=== PATIENT | female | born 1945 | race Caucasian/White ===

== ENCOUNTER 2017-02-28 05:23 | Inpatient (IN) | payer MEDICARE, BC ==
[2017-02-27 09:32] VITALS: BMI 26.7
[2017-02-28] VITALS (27 sets, daily range): BP systolic 113–160; BP diastolic 72–91; PULSE 76–128; RESP 10–23; Ht 167.6 cm; Wt 79.9 kg
[~2017-02-28] VITALS: Ht 167.6 cm; Wt 79.9 kg
[2017-02-28] MEDS ORDERED: CEFAZOLIN 2 GM/50 ML (PMX) 50 ML IVPB SCH (06:00)
[2017-02-28] MEDS ORDERED: LACTATED RINGER'S 1,000 ML IV* SCH (06:00)
[2017-02-28] MEDS ORDERED: THROMBIN 5000 UNIT VIAL ONE ×2 (06:49→08:37)
[2017-02-28] MEDS ORDERED: BUPIVACAINE 0.5%/EPI (SDV) 30 ML INJ ONE (06:49)
[2017-02-28] MEDS ORDERED: GELATIN SIZE 100 SPONGE ONE ×2 (06:49→08:37)
[2017-02-28] MEDS ORDERED: POLYMYXIN/BACITRACIN 1L IRRIG ONE (06:52)
--- NOTE | 2017-02-28 07:00 | HPN ---
Date/Time of Note Date/Time of Note DATE: 02/28/17 TIME: 07:00 Interval H&P Admission Note Pt. seen H&P reviewed: No system changes MITESH GONZALEZ PA-C Feb 28, 2017 07:00
[2017-02-28] MEDS ORDERED: MIDAZOLAM 1 MG/ML 2 ML INJ ONE (07:05)
[2017-02-28] MEDS ORDERED: METH750T2 PO (07:14)
[2017-02-28] MEDS ORDERED: AMIT75TA2 PO (07:14)
[2017-02-28] MEDS ORDERED: SIMV5TAB50 PO (07:14)
[2017-02-28] MEDS ORDERED: PANT40TA3 PO (07:14)
[2017-02-28] MEDS ORDERED: PRIM50TA38 PO (07:14)
[2017-02-28] MEDS ORDERED: GABA300C16 PO (07:14)
[2017-02-28] MEDS ORDERED: TRAM50TA2 PO (07:14)
[2017-02-28] MEDS ORDERED: SURGIFOAM POWDER 1 GM KIT ONE (08:09)
[2017-02-28] MEDS ORDERED: PHENYLephrine (100 MCG/ML) 5ML SYG ONE (08:17)
[2017-02-28] MEDS ORDERED: ONDANSETRON 4 MG INJ ONE (10:49)
[2017-02-28] MEDS ORDERED: METOCLOPRAMIDE 10 MG INJ ONE (10:49)
[2017-02-28] MEDS ORDERED: LIDOCAINE 2% (SDV) 5 ML INJ ONE (10:56)
[2017-02-28] MEDS ORDERED: ETOMIDATE 20 MG INJ ONE (10:56)
[2017-02-28] MEDS ORDERED: NEOSTIGMINE 3 MG/3 ML SYRINGE ONE (10:56)
[2017-02-28] MEDS ORDERED: GLYCOPYRROLATE 0.4 MG INJ ONE (10:56)
[2017-02-28] MEDS ORDERED: ROCURONIUM 50 MG INJ ONE (10:56)
[2017-02-28] MEDS ORDERED: CEFAZOLIN 1 GM INJ ONE (10:57)
[2017-02-28] MEDS ORDERED: HYDROmorphONE 1 MG/ML SYG IV PRN (11:00)
[2017-02-28] MEDS ORDERED: ZOLPIDEM 5 MG TAB PO PRN (11:00)
[2017-02-28] MEDS ORDERED: BISACODYL 10 MG SUPP PR PRN (11:00)
[2017-02-28] MEDS ORDERED: METHOCARBAMOL 750 MG TAB PO PRN (11:00)
[2017-02-28] MEDS ORDERED: CEPASTAT LOZENGE MT PRN (11:00)
[2017-02-28] MEDS ORDERED: NALOXONE (0.4 MG/ML) INJ IV PRN (11:00)
[2017-02-28] MEDS ORDERED: AL HYDROX/MG HYDROX/SIMETH 30 ML CUP PO PRN (11:00)
[2017-02-28] MEDS ORDERED: HYDROmorphONE 0.2 MG/ML PCA IV SCH (11:00)
[2017-02-28] MEDS ORDERED: ACETAMINOPHEN 325 MG TAB PO PRN ×2 (11:00→22:30)
[2017-02-28] MEDS ORDERED: ONDANSETRON 4 MG INJ IV PRN ×2 (11:00→11:30)
[2017-02-28] MEDS ORDERED: DIPHENHYDRAMINE 50 MG INJ IV PRN ×2 (11:00→11:30)
--- NOTE | 2017-02-28 11:06 | SIPON ---
Date/Time of Note Date/Time of Note DATE: 02/28/17 TIME: 11:04 Operative Report Preoperative Diagnosis Cervical disc disease and stenosis Postoperative Diagnosis Cervical disc disease and stenosis Operation/Procedure Performed Cervical fusion Surgeon see signature line retail administrative assistant Kim Aguirre Anesthesia: general Estimated blood loss: 50 - 100 ml's Transfusion Required none Specimen Disc Grafts/Implants Cervical plate and cage Complications none CARLOS ROPER MD Feb 28, 2017 11:05
[2017-02-28] MEDS ORDERED: MEPERIDINE 25 MG INJ IV PRN (11:30)
[2017-02-28] MEDS ORDERED: hydrALAzine 20 MG INJ IV PRN (11:30)
[2017-02-28] MEDS ORDERED: METOCLOPRAMIDE 10 MG INJ IV PRN (11:30)
[2017-02-28] MEDS ORDERED: HYDROmorphONE (0.2 MG/ML) 10ML SYG IV PRN ×2 (11:30)
[2017-02-28] MEDS ORDERED: LABETALOL HCL 20MG INJ IV PRN (11:30)
[2017-02-28] MEDS ORDERED: FENTAnyl 50 MCG/ML VIAL IV PRN (11:30)
[2017-02-28] MEDS: CEFAZOLIN 1 GM/50 ML (PMX) 50 ML IVPB SCH ×2 (11:36→19:34)
--- NOTE | 2017-02-28 11:46 | RADRPT ---
PROCEDURE: Intraoperative imaging of the cervical spine with fluoroscopy. CLINICAL INDICATION: Neck pain. Intraoperative. TECHNIQUE: 7 images of the cervical spine were obtained in the operating room with an image intens ifier. No radiologist was in attendance. Fluoroscopy time is 25 seconds. COMPARISON: No prior study is available for comparison. FINDINGS: Surgical instruments are noted overlying the cervical spine. Images demonstrate anterior fusion wit h plate and screws at C4 - C5 - C6 - C7. Intervertebral cages are present at C4-5, C5-6, and C6-7. IMPRESSION: 1. Intraoperative imaging of the cervical spine. 2. Anterior fusion at C4 - C5 - C6 - C7. RPTAT: QQ .Kali Pritchett MD, Date Time Electronically viewed and signed by .Kali Pritchett MD, on 02/28/2017 11:46 .R/
--- NOTE | 2017-02-28 12:48 | OPR ---
DATE OF OPERATION: 02/28/2017 PREOPERATIVE DIAGNOSIS: C4-5, C5-6, C6-7 cervical disc disease and stenosis with possible myelopathy. POSTOPERATIVE DIAGNOSIS: C4-5, C5-6, C6-7 cervical disc disease and stenosis with possible myelopathy. PROCEDURE: 1. Partial corpectomy of C4, C5, C6, and C7. 2. Anterior cervical diskectomy and spinal cord decompression at C4-5, C5-6, C6-7. 3. Placement of intervertebral biomechanical device at C4-5, C5- 6, C6-7. 4. Anterior fusion at C4-5, C5-6, C6-7. 5. Anterior cervical plate placement at C4, C5, C6, and C7. 6. Use of allograft. 7. Use of C-arm flash with interpretation without radiologist present. 8. Intraoperative neuro monitoring (3 hours). SURGEON: Chandu Prince MD ENERGY TECHNICIAN: Kim Aguirre PA-C NEED FOR COMPUTER SUPPORT SPECIALIST: equal opportunity assistant was required in order to retract the neurovascular elements. IMPLANTS: 1. Zavation 42 mm anterior cervical plate with 16 mm screws. 2. BK cervical peek cages 16 x 18 mm footprint, 6 mm at C4-C5 and 6 mm at C5-C6 and 7 mm at C6-C7. 3. Fiber graft matrix. OPERATIVE FINDINGS AT SURGERY: Neuro monitoring throughout the case revealed left C5 amplitude of 50 percent, right C5 amplitude of 30 percent, left C6 amplitude of 30 percent, left C7 amplitude of 70 percent, right C7 amplitude of 30 percent. At the end of the case, nerve signal returned to normal. The patient had stenosis and significant collapse at all 3 levels. ESTIMATED BLOOD LOSS: 60 mL. DRAINS: None. SPECIMENS: C4-C5, C5-C6, and C6-C7 discs. COMPLICATIONS: None. DRAINS: One. ANESTHESIOLOGIST: Saman Gonzalez MD TYPE OF ANESTHESIA: General. INDICATION FOR PROCEDURE: The patient is a 71-year-old female with cervical disc disease and stenosis from C4-C7. She has radiculopathy and probable myelopathy. She has failed conservative measures; therefore, I recommended proceeding with the above mentioned surgery. Preoperatively, discussed risks, benefits, alternatives, she understood, wished to proceed. DESCRIPTION OF PROCEDURE: The patient was identified in the preoperative holding area, given Ancef antibiotics in the operating room, where she was successfully placed under general anesthesia. Neuro monitors were placed. Sequential compression devices were applied. Neural monitoring was utilized during the procedure for 3 hours to include SSEP, MEP, and EMG. Start time was 7:45 a.m. closure time was 10:45 a.m. Phoenix catheter was introduced. The patient was placed in a room table in supine position. Towel rolls were placed. Arms were tucked. The neck was extended. Neck was prepped draped usual sterile fashion. A left-sided neck incision was made. Platysma was incised in line with skin incision. I then identified an interval between the sternocleidomastoid and strap muscles. I identified the anterior spine. I then placed bent spine needles into the lateral film to confirm the correct levels. I then subperiosteally dissected the longus coli musculature. Self-retaining retractors were then placed. The endotracheal cuff was deflated and reinflated. I took a rongeur and removed he large anterior osteophytes. Microscope was then brought and partial corpectomy was performed at C4, C5, C6, C7 with removal of least 50 percent of the vertebral bodies at each vertebra. I decompressed the spinal cord with a high speed bur and Kerrison punches. I decompressed the spinal cord and neural foramina bilaterally at C4-5, C5-6 and C6-7. I prepared the end-plates and placed various trials and chose the appropriate graphite. I then took the peek cage within which I placed allograft and I impacted an intervertebral biomechanical device at C4-5, C5-6 and C6-7 to complete the fusion at each of these levels. I then took microscope off the field. I placed an anterior cervical plate spanning C4-C7 with 16 mm screws at each level bilaterally. I then locked down the screws. At this point, all nerve signals returned to normal. I took final AP and lateral images and confirmed hardware in the lamina of the spine. The wound was then copiously irrigated. Hemostasis was achieved with Surgifoam. I then placed a deep drain and closed the platysma with a running 2-0 Vicryl stitch. I then closed subcutaneous tissue with a 4 Monocryl stitch. Dermabond and sterile dressings were then applied. The patient was then awakened from anesthesia, and taken to recovery room in stable condition. Lap, sponge, and counts correct x2. There were no apparent complications during the procedure. The patient will be admitted to orthopedic [facility]ino for routine postoperative care to include neurovascular checks, pain control, antibiotics and physical therapy. Dictated By: Chandu Prince MD /madison/fan /Document#: [id number]
[2017-02-28] MEDS: D5W-0.45 NACL + KCL 20 MEQ 1,000 ML IV SCH ×2 (13:12→23:15)
--- NOTE | 2017-02-28 15:56 | CONS ---
Date/Time of Note Date/Time of Note DATE: 02/28/17 TIME: 15:50 Assessment/Plan Assessment/Plan Problems: (1) Status post cervical spinal fusion Status: Acute Comment: She is postop and apparently without complications. She reports that her upper extremity symptoms are modestly improved. She is not having respiratory or swallowing symptoms. Continue with rehabilitative care with probable good rehabilitation potential. As noted she is on medications for radiculopathy neuropathic symptoms specifically a combination of tricyclic antidepressant and gabapentin. This should be addressed as an outpatient. Changing it now may not be in the patient's best interest (2) Elevated liver function tests Status: Chronic Comment: Noted. This should be worked up by her primary care physician Dr. Gerardo Rivers (3) Gastroesophageal reflux disease Status: Chronic Comment: Stable, continue proton pump inhibitor Qualifiers: Qualified Code: K21.9 - Gastroesophageal reflux disease without esophagitis (4) Hyperlipidemia Status: Chronic Comment: Able, continue statin therapy Qualifiers: Qualified Code: E78.00 - Pure hypercholesterolemia (5) Spinal stenosis, cervical region Status: Chronic Comment: Hopefully long-term good outcome after surgery Consultation Date/Type/Reason Admit Date/Time Feb 28, 2017 at 05:23 Date of Consultation: Feb 28, 2017 Type of Consultation: Internal medicine Reason for Consultation Postoperative assistance after anterior cervical spinal laminectomy and fusion Referring Provider: CARLOS ROPER MD Hx of Present Illness Charming 71-year-old female with a 20 year history of cervical spine radiculopathy. She was brought in electively after medical clearance by her primary physician and has gone through surgery. She is now postop and feeling well. Constitutional: no complaints (Denies fevers chills or sweats) Eyes: no complaints ENT: no complaints Respiratory: no complaints Cardiovascular: no complaints Gastrointestinal: no complaints Genitourinary: no complaints Musculoskeletal: neck pain Skin: no complaints Neurologic: no complaints (Reports upper extremity symptoms are better) Endocrine: no complaints Lymphatic: no complaints Past Medical History Cervical spine stenosis with radiculopathy, gastroesophageal reflux disease, history of childhood asthma-resolved; hyperlipidemia; impaired glucose tolerance ; osteoarthritis; former smoker Medications; amitriptyline 75 mg twice daily, gabapentin 300 mg 3 times daily, pantoprazole 40 mg every morning, simvastatin 20 mg one half pill nightly, tramadol 50 mg 4 times daily as needed Allergies-no known medical allergies however intolerant of Soma Past Surgical History As post bilateral foot surgery; status post bilateral shoulder surgery; status post lumbar discectomy Family History Significant Family History: no pertinent family hx Social History Alcohol Use: rarely Smoking Status: Former smoker Drug Use: none Exam/Review of Systems Vital Signs Vitals Vital Signs Date Time Temp Pulse Resp B/P Pulse Ox O2 Delivery O2 Flow Rate FiO2 02/28/17 12:04 86 15 131/73 100 Nasal Cannula 02/28/17 11:42 2.0 02/28/17 11:09 98.2 Exam Constitutional: alert, oriented Eyes: EOMI, nl conjunctiva, nl lids, nl sclera Neck: other (Anterior neck scar with drain and ice bag; no bruits) Respiratory: clear to auscultation, normal air movement Cardiovascular: nl pulses, regular rate and rhythm Gastrointestinal: nl liver, spleen, non-tender, soft Extremities: normal pulses Neurological: EXECUTIVE SECRETARY SOCIAL WELFARE II-XII intact, nl mental status, nl speech, nl strength Skin: nl turgor, rash or lesions Medications Medications Current Medications Cefazolin Sodium/ Dextrose 50 ml @ 100 mls/hr PREOP IVPB ; Start 02/28/17 at 06 :00; Stop 02/28/17 at 16:00 Lactated Ringer's 1,000 ml @ 0 mls/hr Q0M IV* ; Start 02/28/17 at 06:00; Stop 02/28/17 at 16:00 Potassium Chloride/Dextrose/ Sod Cl (D5-1/2ns + KCl 20 Meq) 1,000 ml @ 100 mls/ hr Q10H IV Last administered on 02/28/17t 13:12; Admin Dose 100 MLS/HR; Start 02/28/17 at 10:59 Acetaminophen/ Hydrocodone Bitart ([place] (10/325)) 1 tab Q4H PRN PO PAIN LEVEL 1-5; Start 03/01/17 at 10:00 Acetaminophen/ Hydrocodone Bitart ([place] (10/325)) 2 tab Q4H PRN PO PAIN LEVEL 6-10; Start 03/01/17 at 10:00 Hydromorphone HCl 0.2 mg 0.2 mg Q1H PRN IV BREAKTHROUGH PAIN; Start 02/28/17 at 11:00 Cefazolin Sodium (Ancef 1 Gm/50 ml (Pmx)) 50 ml @ 100 mls/hr Q8H IVPB Last administered on 02/28/17 11:36; Admin Dose 100 MLS/HR; Start 02/28/17 at 11:00 ; Stop 03/01/17 at 03:29 Ondansetron HCl (Zofran Inj) 4 mg Q6H PRN IV NAUSEA AND/OR VOMITING; Start 02/28/17 at 11:00 Bisacodyl (Dulcolax Supp) 10 mg DAILY PRN [place] CONSTIPATION; Start 02/28/17 at 11 :00 Docusate Sodium (Colace) 100 mg BID PO ; Start 02/28/17 at 21:00 Al Hydrox/Mg Hydrox/Simethicone (Mag-Al Plus) 15 ml Q6H PRN PO CONSTIPATION/ DYSPEPSIA; Start 02/28/17 at 11:00 Acetaminophen (Tylenol Tab) 650 mg Q4H PRN PO CORTES OR TEMP GREATER THAN 101.3F; Start 02/28/17 at 11:00 Phenol (Cepastat Lozenge) 1 lozenge PRN PRN MT SORE THROAT; Start 02/28/17 at 11:00 Diphenhydramine HCl (Benadryl) 25 mg Q6H PRN IV ITCHING; Start 02/28/17 at 11: 00 Naloxone HCl (Narcan) 0.2 mg Q2M PRN IV RR 8 BREATHS/MIN OR LESS; Start at 11:00 Hydromorphone HCl (Dilaudid B2B SALES MANAGER) B2B SALES MANAGER to be started in PACU Q4PCA IV Last administered on 02/28/17 11:26; Admin Dose 6 MG; Start 02/28/17 at 11:00; Status Future Hold Miscellaneous Information 1. Hold B2B SALES MANAGER at 1,000... B2B SALES MANAGER IV ; Start 02/28/17 at 11: 00; Stop 03/01/17 at 10:59 Methocarbamol (Robaxin) 750 mg Q8H PRN PO spasm; Start 02/28/17 at 11:00 Acetaminophen/ Hydrocodone Bitart ([place] (10/325)) 2 tab ONCE@0930 PO ; Start 03/01/17 at 09:30; Stop 03/01/17 at 09:31 Influenza Virus Vaccine (Fluzone) 0.5 ml ONCE ONCE IM* ; Start 03/02/17 at 09:00 ; Stop 03/02/17 at 09:01 MARI SAMPSON MD Feb 28, 2017 15:56
[2017-02-28] MEDS ORDERED: LOSARTAN 25 MG TAB PO ONE (17:30)
[2017-02-28] MEDS: PANTOPRAZOLE (EC) 40 MG TAB PO SCH (17:34)
[2017-02-28] MEDS: GABAPENTIN 300 MG CAP PO SCH (17:35)
[2017-02-28] MEDS: AMITRIPTYLINE 25 MG TAB PO SCH (17:35)
[2017-02-28] MEDS: DOCUSATE SODIUM 100 MG CAP PO SCH (21:00)
[2017-02-28] MEDS ORDERED: LORAZEPAM 2 MG INJ IV ONE (21:00)
[2017-02-28] MEDS ORDERED: ATORVASTATIN 10 MG TAB PO SCH (21:00)
[2017-02-28] MEDS ORDERED: PRIMIDONE 50 MG TAB PO SCH (21:00)
[2017-02-28 21:26] LABS: BASOPHILS % 0.3 % (0.0-2.0); EOSINOPHILS % 0.3 % (0.0-7.0); HEMATOCRIT 37.3 % (37.0-47.0); LYMPHOCYTES # 1.8 10^3/ul (0.8-2.9); LYMPHOCYTES % 18.4 % (15.0-51.0); MEAN CORPUSCULAR HEMOGLOBIN 32.7 pg (29.0-33.0); MEAN CORPUSCULAR HGB CONC 34.9 g/dl (32.0-37.0); MEAN PLATELET VOLUME 9.1 fl (7.4-10.4); MONOCYTE # 0.8 10^3/ul (0.3-0.9); MONOCYTES % 8.2 % (0.0-11.0); NEUTROPHIL # 7.2 10^3/ul (1.6-7.5); NEUTROPHILS % 72.5 % (39.0-77.0); PLATELET COUNT 230 10^3/UL (140-415); RED BLOOD COUNT 3.97 10^6/ul (4.20-5.40); RED CELL DISTRIBUTION WIDTH 12.8 % (11.5-14.5); WHITE BLOOD COUNT 9.9 10^3/ul (4.8-10.8)
--- NOTE | 2017-02-28 21:31 | EN ---
Date/Time of Note Date/Time of Note DATE: 02/28/17 TIME: 21:31 Event Note Medicine Medicine Event Note CLINIC OFFICE COORDINATOR note Rapid response was called at approximately 2100. CLINIC OFFICE COORDINATOR was called for patient being noted to be tremulous and shaking at bedside. Patient is status post anterior cervical surgery upon entering the room I observe the patient to be tremulous and shaking rapidly. Patient was alert and oriented 3. She states that she has a history of tremors for which he takes medication for. She states that she has not some pain at her surgery site. Initial vitals on exam: Blood pressure 220/100, heart rate 160, temperature 99, satting at 90% on nasal cannula Vitals after giving Ativan 1 mg 1: Blood pressure 140/96, heart rate 120, temperature 99, satting at 6% on nonrebreather General: Patient alert and oriented 3, shaking and tremulous, cooperative HEENT: Atraumatic, normocephalic. The pupils are equal, round and reactive. Extraocular motor are intact Neck: Surgical dressing over the anterior neck, drain intact and draining, dressing clean dry and intact Lungs: Clear to auscultation bilaterally no crackles rales or wheezing Heart: Sinus tachycardia, no overt murmurs appreciated Abdomen: Soft , nontender, nondistended , bowel sounds are present. No guarding no rebound tenderness , No masses or organomegaly. No costovertebral temporal angle mass Extremities: Shaking/tremors of the bilateral upper extremity Neurologic: Patient is anxious however she is displaying normal mental status, speech normal, cranial nerves II through XII are intact, motor and sensory are intact, no focal weakness, Assessment and plan: #1 Tremors: Anxiety versus infection. stat CBC BMP, lactate, blood cultures, TSH, urine cultures, chest x-ray. Patient was given Ativan 1 mg IV 1 after the patient did show significant improvement. Her tremors subsided. Patient stated that she felt better. The nurse spoke to the surgeon who requested the patient be transferred to ICU for closer monitoring. Patient was subsequently transferred to the ICU. Greater than 30 minutes of critical care time was spent on the care and management of the patient. JONI WALTERS Feb 28, 2017 21:31
[2017-02-28 21:47] LABS: ALBUMIN 3.7 g/dl (3.3-4.9); ALBUMIN/GLOBULIN RATIO 1.19; BILIRUBIN,INDIRECT 0.4 mg/dl (0-1.1); BILIRUBIN,TOTAL 0.4 mg/dl (0.2-1.3); CALCIUM 8.9 mg/dl (8.4-10.2); CREATININE 0.57 mg/dl (0.44-1.00); MAGNESIUM 1.3 mg/dl (1.7-2.5); POTASSIUM 3.7 mmol/L (3.5-5.1); TOTAL PROTEIN 6.8 g/dl (6.1-8.1)
[2017-02-28 22:17] LABS: THYROID STIMULATING HORMONE 2.43 MIU/L (0.465-4.680)
[2017-02-28 22:35] LABS: FREE T3 3.98 pg/ml (2.77-5.27)
[2017-02-28] MEDS ORDERED: NEBIVOLOL 5 MG TAB PO ONE (22:45)
[2017-02-28] MEDS ORDERED: ACETAMINOPHEN 325 MG TAB PO ONE (22:45)
[2017-02-28] MEDS ORDERED: PRIMIDONE 250 MG TAB PO SCH (23:02)
[2017-02-28 23:33] LABS: CREATINE KINASE 225 IU/L (23-200)
[2017-02-28 23:43] LABS: CK-MB 2.33 ng/ml (0.0-2.4)
[2017-02-28 23:46] LABS: TROPONIN-I < 0.012 ng/ml (0.00-0.12)
[2017-03-01] VITALS (18 sets, daily range): BP systolic 72–129; BP diastolic 41–84; PULSE 103–123; RESP 10–24
[2017-03-01] MEDS: AMITRIPTYLINE 25 MG TAB PO SCH ×3 (00:34→21:09)
[2017-03-01] MEDS: GABAPENTIN 300 MG CAP PO SCH ×3 (00:36→21:10)
[2017-03-01] MEDS ORDERED: MAGNESIUM CHLORIDE (SR) 64 MG TAB PO ONE (01:00)
[2017-03-01 01:04] LABS: AADO2 Arterial 70.6 mmHg (7.0-24.0); Allen Test ACCEPTAB; Arterial Base Excess 0.4 mmol/L (-3.0-3); Arterial COHb 0.2 % (0.0-3.0); Arterial Fraction of Oxyhgb 97.7 % (93.0-99.0); Arterial HCO3 24.7 mmol/L (22.0-26.0); Arterial MetHb 0.3 % (0.0-1.5); Arterial Total Hemglobin 13.5 g/dl (12.0-18.0); MODE NASAL CANNULA
[2017-03-01] MEDS: CEFAZOLIN 1 GM/50 ML (PMX) 50 ML IVPB SCH (02:25)
[2017-03-01 02:30] LABS: ADD UMIC YES; UR ASCORBIC ACID NEGATIVE (NEGATIVE); UR BACTERIA FEW /HPF (NONE SEEN); UR BILIRUBIN (Dip) NEGATIVE (NEGATIVE); UR BLOOD (Dip) 1+ mg/dL (NEGATIVE); UR CLARITY CLEAR (CLEAR); UR COLOR YELLOW (YELLOW); UR GLUCOSE (Dip) NEGATIVE (NEGATIVE); UR KETONES (Dip) NEGATIVE (NEGATIVE); UR LEUKOCYTE ESTERASE (Dip) NEGATIVE Leu/ul (NEGATIVE); UR MUCUS FEW /HPF (NONE SEEN); UR NITRITE (Dip) NEGATIVE (NEGATIVE); UR RBC 29 /HPF (0-5); UR SPECIFIC GRAVITY (Dip) 1.012 (1.003-1.030); UR TOTAL PROTEIN (Dip) NEGATIVE (NEGATIVE); UR UROBILINOGEN (Dip) NEGATIVE (NEGATIVE)
[2017-03-01 05:28] LABS: BASOPHILS % 0.2 % (0.0-2.0); EOSINOPHILS # 0.1 10^3/ul (0.0-0.5); EOSINOPHILS % 0.9 % (0.0-7.0); HEMATOCRIT 34.5 % (37.0-47.0); HEMOGLOBIN 11.8 g/dl (12.0-16.0); LYMPHOCYTES # 1.9 10^3/ul (0.8-2.9); LYMPHOCYTES % 21.6 % (15.0-51.0); MEAN CORPUSCULAR HGB CONC 34.2 g/dl (32.0-37.0); MEAN CORPUSCULAR VOLUME 96.4 fl (82.0-101.0); MEAN PLATELET VOLUME 9.2 fl (7.4-10.4); MONOCYTES % 11.4 % (0.0-11.0); NEUTROPHIL # 5.8 10^3/ul (1.6-7.5); NEUTROPHILS % 65.7 % (39.0-77.0); PLATELET COUNT 203 10^3/UL (140-415); RED BLOOD COUNT 3.58 10^6/ul (4.20-5.40); WHITE BLOOD COUNT 8.8 10^3/ul (4.8-10.8)
[2017-03-01 05:56] LABS: CALCIUM 8.3 mg/dl (8.4-10.2); CREATININE 0.66 mg/dl (0.44-1.00); MAGNESIUM 1.3 mg/dl (1.7-2.5)
[2017-03-01] MEDS: D5W-0.45 NACL + KCL 20 MEQ 1,000 ML IV SCH ×2 (06:59→16:59)
[2017-03-01] MEDS: DOCUSATE SODIUM 100 MG CAP PO SCH ×2 (09:00→21:09)
[2017-03-01] MEDS ORDERED: LOSARTAN 25 MG TAB PO SCH (09:00)
[2017-03-01] MEDS ORDERED: HYDROCODONE/APAP (10/325) TAB PO SCH (09:30)
[2017-03-01] MEDS: PANTOPRAZOLE (EC) 40 MG TAB PO SCH (09:48)
[2017-03-01] MEDS: MAGNESIUM CHLORIDE (SR) 64 MG TAB PO SCH ×2 (09:49→21:09)
[2017-03-01] MEDS ORDERED: HYDROCODONE/APAP (10/325) TAB PO PRN (10:00)
--- NOTE | 2017-03-01 10:34 | PN ---
Date/Time of Note Date/Time of Note DATE: 03/01/17 TIME: 10:32 Assessment/Plan Lines/Catheters IV Catheter Type (from Nrs): Peripheral IV Phoenix in Place (from Nrs): Yes Assessment/Plan Assessment/Plan Postop day #1 status post cervical fusion Last night the patient had an episode of tremors which she gets at home. This was more severe. Rapid response was called. Patient was placed on oxygen and transferred to ICU. She had a low-grade temperature last night. Today she is doing much better. She is not having any respiratory issues. I have replaced her magnesium. She will transferred to the orthopedic [facility]. Subjective 24 Hr Interval Summary Doing well. Exam/Review of Systems Vital Signs Vitals Vital Signs Date Time Temp Pulse Resp B/P Pulse Ox O2 Delivery O2 Flow Rate FiO2 03/01/17 10:00 104 13 99/66 96 Nasal Cannula 3.0 03/01/17 08:00 98.8 Intake and Output 02/28/17 02/28/17 03/01/17 15:00 23:00 07:00 Intake Total 1450 ml 1550 ml 650 ml Output Total 540 ml 1240 ml 1035 ml Balance 910 ml 310 ml -385 ml Exam Free Text/Dictation Neurovascularly intact Results Result Diagram: 03/01/17 0512 03/01/17 0512 CARLOS ROPER MD Mar 01, 2017 10:34
[2017-03-01] MEDS ORDERED: MAGNESIUM SULFATE 4 GM/100 ML 100 ML IVPB ONE (11:30)
--- NOTE | 2017-03-01 12:27 | PN ---
Date/Time of Note Date/Time of Note DATE: 03/01/17 TIME: 12:22 Assessment/Plan VTE Prophylaxis VTE Prophylaxis Intervention: SCD's Lines/Catheters IV Catheter Type (from Nrs): Peripheral IV Urinary Cath still in place: Yes Reason Cath still needed: urinary retention Assessment/Plan Chief Complaint/Hosp Course Jackie 71-year-old female with a 20 year history of cervical spine radiculopathy. She was brought in electively after medical clearance by her primary physician and has gone through surgery. She is now postop and feeling well. Problems: (1) Tremor, essential Status: Chronic Comment: Patient on meds not mmentioned in pre-op for diagnosis not listed. Continue treatment but critical to maintain sleep pattern (2) Elevated liver function tests Status: Chronic Comment: Negative hep serologies, observe (3) Gastroesophageal reflux disease Status: Chronic Comment: stable Qualifiers: Esophagitis presence: without esophagitis Qualified Code: K21.9 - Gastroesophageal reflux disease without esophagitis (4) Hyperlipidemia Status: Chronic Comment: continue statin, assuming this is not cause of tremor Qualifiers: Hyperlipidemia type: pure hypercholesterolemia Qualified Code: E78.00 - Pure hypercholesterolemia (5) Status post cervical spinal fusion Status: Acute Comment: Stable for floor care and rehab Subjective 24 Hr Interval Summary Free Text/Dictation Patient reports tremor gone with nights sleep. Her spouse and she report this is an issue if lack of sleep and anxious. Constitutional: no complaints Respiratory: no complaints Cardiovascular: no complaints Gastrointestinal: no complaints Exam/Review of Systems Vital Signs Vitals Vital Signs Date Time Temp Pulse Resp B/P Pulse Ox O2 Delivery O2 Flow Rate FiO2 03/01/17 12:00 99.1 108 16 84/62 96 Nasal Cannula 3.0 Intake and Output 02/28/17 02/28/17 03/01/17 14:59 22:59 06:59 Intake Total 1450 ml 850 ml 1350 ml Output Total 540 ml 1090 ml 1135 ml Balance 910 ml -240 ml 215 ml Exam Constitutional: alert, oriented Respiratory: clear to auscultation, normal air movement Cardiovascular: nl pulses, regular rate and rhythm Gastrointestinal: nl liver, spleen, non-tender, soft Results Result Diagram: 03/01/17 0512 03/01/17 0512 Results 24 hrs Laboratory Tests Test 02/28/17 20:54 02/28/17 21:12 02/28/17 21:15 02/28/17 22:30 Bedside Glucose 151 White Blood Count 9.9 Red Blood Count 3.97 L Hemoglobin 13.0 Hematocrit 37.3 Mean Corpuscular Volume 94.0 Mean Corpuscular Hemoglobin 32.7 Mean Corpuscular Hemoglobin Concent 34.9 Red Cell Distribution Width 12.8 Platelet Count 230 Mean Platelet Volume 9.1 Neutrophils % 72.5 Lymphocytes % 18.4 Monocytes % 8.2 Eosinophils % 0.3 Basophils % 0.3 Nucleated Red Blood Cells % 0.0 Neutrophils # 7.2 Lymphocytes # 1.8 Monocytes # 0.8 Eosinophils # 0.0 Basophils # 0.0 Nucleated Red Blood Cells # 0.0 Sodium Level 133 L Potassium Level 3.7 Chloride Level 99 Carbon Dioxide Level 28 Anion Gap 10 Blood Urea Nitrogen 4 L Creatinine 0.57 Glucose Level 139 Calcium Level 8.9 Magnesium Level 1.3 L Total Bilirubin 0.4 Direct Bilirubin 0.00 Indirect Bilirubin 0.4 Aspartate Amino Transf (AST/SGOT) 45 Alanine Aminotransferase (ALT/SGPT) 47 Alkaline Phosphatase 118 Total Protein 6.8 Albumin 3.7 Globulin 3.10 Albumin/Globulin Ratio 1.19 Thyroid Stimulating Hormone (TSH) 2.430 Free Thyroxine 1.36 Free Triiodothyronine (T3) pg/mL 3.98 Lactic Acid Level 1.6 Blood Gas Specimen Source Blood arterial Arterial Blood Date Drawn 03/01/2017 12:50:48 AM Arterial Blood pH (Temp corrected) 7.420 Arterial Blood pCO2 (Temp correct) 39.0 Arterial Blood pO2 (Temp corrected) 119.2 H Arterial Blood HCO3 24.7 Arterial Blood Base Excess 0.4 Arterial Blood Oxygen Saturation 98.2 Cristino Test ACCEPTAB Arterial Blood Gas Puncture Site Right Radial Arterial Blood Carboxyhemoglobin 0.2 Arterial Blood Methemoglobin 0.3 Blood Gas A-a O2 Differential 70.6 H Oxyhemoglobin Percent 97.7 Total Hemoglobin 13.5 Blood Gas Temperature 37.0 Blood Gas Modality NASAL CANNULA FiO2 33.0 Blood Gas Notified Whom KM Blood Gas Notified Time 03/01/2017 1:03:30 AM Test 02/28/17 22:45 02/28/17 23:00 03/01/17 05:12 Creatine Kinase 225 H Creatine Kinase Index 1.0 Creatinine Kinase MB (Mass) 2.33 Troponin I < 0.012 Urine Color YELLOW Urine Clarity CLEAR Urine pH 7.0 Urine Specific [place] 1.012 Urine Ketones NEGATIVE Urine Nitrite NEGATIVE Urine Bilirubin NEGATIVE Urine Urobilinogen NEGATIVE Urine Leukocyte Esterase NEGATIVE Urine Microscopic RBC 29 H Urine Microscopic WBC 4 Urine Bacteria FEW A Urine Mucus FEW A Urine Hemoglobin 1+ H Urine Glucose NEGATIVE Urine Total Protein NEGATIVE White Blood Count 8.8 Red Blood Count 3.58 L Hemoglobin 11.8 L Hematocrit 34.5 L Mean Corpuscular Volume 96.4 Mean Corpuscular Hemoglobin 33.0 Mean Corpuscular Hemoglobin Concent 34.2 Red Cell Distribution Width 13.0 Platelet Count 203 Mean Platelet Volume 9.2 Neutrophils % 65.7 Lymphocytes % 21.6 Monocytes % 11.4 H Eosinophils % 0.9 Basophils % 0.2 Nucleated Red Blood Cells % 0.0 Neutrophils # 5.8 Lymphocytes # 1.9 Monocytes # 1.0 H Eosinophils # 0.1 Basophils # 0.0 Nucleated Red Blood Cells # 0.0 Sodium Level 135 Potassium Level 4.0 Chloride Level 101 Carbon Dioxide Level 28 Anion Gap 10 Blood Urea Nitrogen 4 L Creatinine 0.66 Glucose Level 121 Calcium Level 8.3 L Magnesium Level 1.3 L Hepatitis B Surface Antigen NEGATIVE Hepatitis C Antibody NEGATIVE Medications Medications Current Medications Potassium Chloride/Dextrose/ Sod Cl (D5-1/2ns + KCl 20 Meq) 1,000 ml @ 100 mls/ hr Q10H IV Last administered on 02/28/17t 23:15; Admin Dose 100 MLS/HR; Start 02/28/17 at 10:59 Acetaminophen/ Hydrocodone Bitart ([place] (10/325)) 1 tab Q4H PRN PO PAIN LEVEL 1-5; Start 03/01/17 at 10:00 Acetaminophen/ Hydrocodone Bitart ([place] (10/325)) 2 tab Q4H PRN PO PAIN LEVEL 6-10; Start 03/01/17 at 10:00 Hydromorphone HCl (Dilaudid) 0.2 mg Q1H PRN IV BREAKTHROUGH PAIN; Start at 11:00 Ondansetron HCl (Zofran Inj) 4 mg Q6H PRN IV NAUSEA AND/OR VOMITING; Start 02/28/17 at 11:00 Bisacodyl (Dulcolax Supp) 10 mg DAILY PRN [place] CONSTIPATION; Start 02/28/17 at 11 :00 Docusate Sodium (Colace) 100 mg BID PO ; Start 02/28/17 at 21:00 Al Hydrox/Mg Hydrox/Simethicone (Mag-Al Plus) 15 ml Q6H PRN PO CONSTIPATION/ DYSPEPSIA; Start 02/28/17 at 11:00 Acetaminophen (Tylenol Tab) 650 mg Q4H PRN PO CORTES OR TEMP GREATER THAN 101.3F; Start 02/28/17 at 11:00 Phenol (Cepastat Lozenge) 1 lozenge PRN PRN MT SORE THROAT; Start 02/28/17 at 11:00 Diphenhydramine HCl (Benadryl) 25 mg Q6H PRN IV ITCHING; Start 02/28/17 at 11: 00 Naloxone HCl (Narcan) 0.2 mg Q2M PRN IV RR 8 BREATHS/MIN OR LESS; Start at 11:00 Hydromorphone HCl (Dilaudid CRIMPING MACHINE OPERATOR) CRIMPING MACHINE OPERATOR to be started in PACU Q4PCA IV Last administered on 02/28/17 11:26; Admin Dose 6 MG; Start 02/28/17 at 11:00; Status Future Hold Methocarbamol (Robaxin) 750 mg Q8H PRN PO spasm; Start 02/28/17 at 11:00 Influenza Virus Vaccine (Fluzone) 0.5 ml ONCE ONCE IM* ; Start 03/02/17 at 09:00 ; Stop 03/02/17 at 09:01 Amitriptyline HCl (Elavil) 75 mg BID PO Last administered on 03/01/17 09:49; Admin Dose 75 MG; Start 02/28/17 at 17:00 Gabapentin (Neurontin) 300 mg BID PO Last administered on 03/01/17 09:48; Admin Dose 300 MG; Start 02/28/17 at 17:00 Pantoprazole (Protonix Tab) 40 mg DAILY PO Last administered on 03/01/17 09:48 ; Admin Dose 40 MG; Start 02/28/17 at 17:00 Atorvastatin Calcium (Lipitor) 10 mg HS PO Last administered on 02/28/17 23:16 ; Admin Dose 10 MG; Start 02/28/17 at 21:00 Losartan Potassium (Cozaar) 25 mg DAILY PO ; Start 03/01/17 at 09:00 Acetaminophen (Tylenol Tab) 650 mg Q6H PRN PO PAIN AND OR ELEVATED TEMP; Start 02/28/17 at 22:30 Primidone (Mysoline) 50 mg HS PO ; Start 02/28/17 at 23:02 Magnesium Chloride 64 mg 64 mg BID PO Last administered on 03/01/17t 09:49; Admin Dose 64 MG; Start 03/01/17 at 09:00 Magnesium Sulfate (Magnesium Sulfate 4 Gm/100 ml) 100 ml @ 25 mls/hr ONCE ONCE IVPB ; Start 03/01/17 at 11:30; Stop 03/01/17 at 15:29 MARI SAMPSON MD Mar 01, 2017 12:27
[2017-03-01] MEDS: HYDROCODONE/APAP (10/325) TAB PO PRN (17:09)
[2017-03-02 02:35] VITALS: BP 140/78; RESP 20
[2017-03-02] MEDS: D5W-0.45 NACL + KCL 20 MEQ 1,000 ML IV SCH (02:59)
[2017-03-02 08:46] VITALS: BP 112/62; PULSE 102; RESP 18
[2017-03-02] MEDS: GABAPENTIN 300 MG CAP PO SCH (08:50)
[2017-03-02] MEDS: DOCUSATE SODIUM 100 MG CAP PO SCH (08:50)
[2017-03-02] MEDS: AMITRIPTYLINE 25 MG TAB PO SCH (08:50)
[2017-03-02] MEDS: MAGNESIUM CHLORIDE (SR) 64 MG TAB PO SCH (08:51)
[2017-03-02] MEDS: PANTOPRAZOLE (EC) 40 MG TAB PO SCH (08:51)
[2017-03-02] MEDS: HYDROCODONE/APAP (10/325) TAB PO PRN ×2 (08:56→15:16)
[2017-03-02] MEDS ORDERED: INFLUENZA VIRUS VACCINE 0.5 ML (DISPENSING) IM* ONE (09:00)
[2017-03-02] MEDS ORDERED: HYDROCODONE/APAP (10/325) TAB PO SCH (09:30)
--- NOTE | 2017-03-02 13:55 | CONS ---
Date/Time of Note Date/Time of Note DATE: 03/02/17 TIME: 13:54 Assessment/Plan Assessment/Plan Chief Complaint/Hosp Course Jackie 71-year-old female with a 20 year history of cervical spine radiculopathy. She was brought in electively after medical clearance by her primary physician and has gone through surgery. She is now postop and feeling well. Problems: (1) Status post cervical spinal fusion Status: Acute Comment: Stable postop and has progressed to the point where she can be discharged. Outpatient rehabilitation. No evidence of postoperative infection or other complications (2) Tremor, essential Status: Chronic Comment: Stable (3) Hyperlipidemia Status: Chronic Comment: Stable on medical therapy Qualifiers: Hyperlipidemia type: pure hypercholesterolemia Qualified Code: E78.00 - Pure hypercholesterolemia (4) Gastroesophageal reflux disease Status: Chronic Comment: Stable on medical therapy Qualifiers: Esophagitis presence: without esophagitis Qualified Code: K21.9 - Gastroesophageal reflux disease without esophagitis Consultation Date/Type/Reason Admit Date/Time Feb 28, 2017 at 05:23 Initial Consult Date 02/28/17 Type of Consultation: Internal medicine Referring Provider: CARLOS ROPER MD 24 HR Interval Summary Constitutional: no complaints Exam/Review of Systems Vital Signs Vitals Vital Signs Date Time Temp Pulse Resp B/P Pulse Ox O2 Delivery O2 Flow Rate FiO2 03/02/17 08:46 98.3 102 18 112/62 94 Room Air 03/02/17 04:15 3.0 Intake and Output 03/01/17 03/01/17 03/02/17 15:00 23:00 07:00 Intake Total 675 ml 375 ml 400 ml Output Total 1980 ml 0 ml Balance -1305 ml 375 ml 400 ml Exam Constitutional: alert, oriented Respiratory: clear to auscultation, normal air movement Cardiovascular: nl pulses, regular rate and rhythm Results Result Diagram: 03/01/1751103/01/17511 Medications Medications Current Medications Potassium Chloride/Dextrose/ Sod Cl (D5-1/2ns + KCl 20 Meq) 1,000 ml @ 100 mls/ hr Q10H IV Last administered on 02/28/17t 23:15; Admin Dose 100 MLS/HR; Start 02/28/17 at 10:59 Acetaminophen/ Hydrocodone Bitart ([place] (10)) 1 tab Q4H PRN PO PAIN LEVEL 1-5 Last administered on 03/02/17 08:56; Admin Dose 1 TAB; Start 03/01/17 at 10 :00 Acetaminophen/ Hydrocodone Bitart ([place] (10325)) 2 tab Q4H PRN PO PAIN LEVEL 6-10; Start 03/01/17 at 10:00 Hydromorphone HCl (Dilaudid) 0.2 mg Q1H PRN IV BREAKTHROUGH PAIN; Start at 11:00 Ondansetron HCl (Zofran Inj) 4 mg Q6H PRN IV NAUSEA AND/OR VOMITING; Start 02/28/17 at 11:00 Bisacodyl (Dulcolax Supp) 10 mg DAILY PRN HI CONSTIPATION; Start 02/28/17 at 11 :00 Docusate Sodium (Colace) 100 mg BID PO Last administered on 03/02/17 08:50; Admin Dose 100 MG; Start 02/28/17 at 21:00 Al Hydrox/Mg Hydrox/Simethicone (Mag-Al Plus) 15 ml Q6H PRN PO CONSTIPATION/ DYSPEPSIA; Start 02/28/17 at 11:00 Acetaminophen (Tylenol Tab) 650 mg Q4H PRN PO CORTES OR TEMP GREATER THAN 101.3F; Start 02/28/17 at 11:00 Phenol (Cepastat Lozenge) 1 lozenge PRN PRN MT SORE THROAT; Start 02/28/17 at 11:00 Diphenhydramine HCl (Benadryl) 25 mg Q6H PRN IV ITCHING; Start 02/28/17 at 11: 00 Naloxone HCl (Narcan) 0.2 mg Q2M PRN IV RR 8 BREATHS/MIN OR LESS; Start at 11:00 Hydromorphone HCl (Dilaudid [employer]IVERS LICENSE EXAMINER) [employer]IVERS LICENSE EXAMINER to be started in PACU Q4PCA IV Last administered on 02/28/17 11:26; Admin Dose 6 MG; Start 02/28/17 at 11:00; Status Future Hold Methocarbamol (Robaxin) 750 mg Q8H PRN PO spasm; Start 02/28/17 at 11:00 Amitriptyline HCl (Elavil) 75 mg BID PO Last administered on 03/02/17 08:50; Admin Dose 75 MG; Start 02/28/17 at 17:00 Gabapentin (Neurontin) 300 mg BID PO Last administered on 03/02/17 08:50; Admin Dose 300 MG; Start 02/28/17 at 17:00 Pantoprazole (Protonix Tab) 40 mg DAILY PO Last administered on 03/02/17 08:51 ; Admin Dose 40 MG; Start 02/28/17 at 17:00 Atorvastatin Calcium (Lipitor) 10 mg HS PO Last administered on 02/28/17 23:16 ; Admin Dose 10 MG; Start 02/28/17 at 21:00; Status Future Hold Acetaminophen (Tylenol Tab) 650 mg Q6H PRN PO PAIN AND OR ELEVATED TEMP Last administered on 03/01/17 22:21; Admin Dose 650 MG; Start 02/28/17 at 22:30 Primidone (Mysoline) 50 mg HS PO Last administered on 03/01/17 21:09; Admin Dose 50 MG; Start 02/28/17 at 23:02 Magnesium Chloride (Mag 64) 64 mg BID PO Last administered on 03/02/17 08:51; Admin Dose 64 MG; Start 03/01/17 at 09:00 MARI SAMPSON MD Mar 02, 2017 13:55
--- NOTE | 2017-03-03 08:22 | DS ---
DATE OF ADMISSION: 02/28/2017 DATE OF DISCHARGE: 03/02/2017 ADMITTING DIAGNOSIS: Cervical stenosis. DISCHARGE DIAGNOSIS: Cervical stenosis. PROCEDURE: The patient was taken to the operating room on 02/28/2017, underwent ACDF. HOSPITAL COURSE: The patient was admitted to the orthopedic patino after undergoing the above procedu re. That first night she had tremors which she would get at home. A rapid response was called. Joe akins was transferred to the ICU. By the next day she was doing well and transferred back to the orthop edic patino. By postoperative day 2, she was deemed stable for discharge with followup arranged with the undersigned. Dictated By: CARLOS HARPER/HANNA Conf#: [id number] DID#: [id number]
== END 2017-03-02 15:47 | disposition home or self-care (01) | DRG 473 ==
LOC: REC 05:23 → MS1 12:45 → ICU 21:22 → MS1 03-01 15:55
PROVIDERS: ADMIT Specialist; ATTEND Specialist
PROC: 0RB30ZZ Excision of Cervical Vertebral Disc, Open Approach (ICD-10-PCS; 2017-02-28)
PROC: 4A11X4G Monitoring of Peripheral Nervous Electrical Activity, Intraoperative, External Approach (ICD-10-PCS; 2017-02-28)
PROC: 0RG20A0 Fusion of 2 or more Cervical Vertebral Joints with Interbody Fusion Device, Anterior Approach, Anterior Column, Open Approach (ICD-10-PCS; principal; 2017-02-28 07:00)
DX: M50.121 Cervical disc disorder at C4-C5 level with radiculopathy (principal); M48.02 Spinal stenosis, cervical region; E78.5 Hyperlipidemia, unspecified; K21.9 Gastro-esophageal reflux disease without esophagitis; R25.1 Tremor, unspecified; E66.9 Obesity, unspecified; Z68.28 Body mass index [BMI] 28.0-28.9, adult
CPT/HCPCS: 36600; 72052; 80048; 80053; 81001; 82550; 82553; 82803; 82962; 83605; 83735; 84439; 84443; 84481; 84484; 85025; 86803; 86999; 87040; 87081; 87086; 87340; 88304; 90686; 97116; 97162; 97164; 97530; J0690; J1170; J2060; J2250; J2370; J2405; J2710; J2765; J3010; J3480